=== PATIENT | female | born 1995 | race Caucasian/White ===

== ENCOUNTER 2021-12-28 18:46 | Emergency (ER) | payer OTHER, SELFPAY ==
[2021-12-28 19:28] VITALS: BP 145/93; PULSE 110; RESP 18; TEMP 36.4; O2SAT 100
--- NOTE | 2021-12-28 21:11 | ED.GENADULT ---
HPI - General Adult General Chief complaint: Wound/Laceration Stated complaint: sore on leg Time Seen by Provider: 12/28/21 21:06 History of Present Illness HPI narrative: a 26-year-old female presenting to ED with a chief complaint of a sore on her right calf. Patient believes that she was stung by a bee on Sunday. After that the area became erythematous, indurated and painful. She has not noted any drainage. Denies systemic signs of illness such as fever chills nausea vomiting or diarrhea. Related Data Allergies Allergy/AdvReac Type Severity Reaction Status Date / Time Penicillins Allergy Unknown Unknown Verified 12/28/21 19:31 sulfamethoxazole Allergy Unknown Unknown Verified 12/28/21 19:31 trimethoprim Allergy Unknown Unknown Verified 12/28/21 19:31 Review of Systems Review of Systems: CONSTITUTIONAL: Denies night sweats. EYES: No eye pain ENT: Denies rhinorrhea CARDIOVASCULAR: Denies palpitations RESPIRATORY: Denies hemoptysis GASTROINTESTINAL: Denies hematemesis GENITOURINARY: Denies hematuria. SKIN: Denies rash MUSCULOSKELETAL: Denies myalgia. NEUROLOGIC: Denies weakness. PSYCHIATRIC: Denies delusions [facility] Social History Social History (Updated 12/28/21 @ 21:12 by Don Valdez MD) Social History: Patient denies any history of alcohol tobacco or drug use Exam Narrative: APPEARANCE: No apparent distress. Head atraumatic. EYES: PERRLA/EOMI, NOSE: Normal no drainage NECK: Supple, Trachea midline RESPIRATORY: CTAB, No increased work of breathing. CARDIOVASCULAR: S1S2 appreciated ABDOMINAL: Soft, nontender, nondistended, MUSCULOSKELETAl: No obvious deformities NEURO: Alert. Moving 4/4 extremities SKIN:: 8 x 7cm area of erythema and induration on her right calf. There is no areas of fluctuance indicating an abscess. PSYCHIATRIC: Normal affect Course Vital Signs Vital signs: Vital Signs Temperature 97.6 F 12/28/21 19:28 Pulse Rate 110 H 12/28/21 19:28 Respiratory Rate 18 12/28/21 19:28 Blood Pressure 145/93 H 12/28/21 19:28 Pulse Oximetry 100 12/28/21 19:28 Temperature 97.6 F 12/28/21 19:28 Pulse Rate 110 H 12/28/21 19:28 Respiratory Rate 18 12/28/21 19:28 Blood Pressure 145/93 H 12/28/21 19:28 Pulse Oximetry 100 12/28/21 19:28 Medical Decision Making MDM Narrative Medical decision making narrative: A 26-year-old female presenting with an area of erythema on her right calf. Differential cellulitis versus brown recluse spider bite. Patient will be treated with a course of antibiotics to see if that resolves her issue. If not she can follow up with a primary care physician to get referral to a surgeon. Vital Signs Vital Signs: Vital Signs Temperature 97.6 F 12/28/21 19:28 Pulse Rate 110 H 12/28/21 19:28 Respiratory Rate 18 12/28/21 19:28 Blood Pressure 145/93 H 12/28/21 19:28 Pulse Oximetry 100 12/28/21 19:28 Temperature 97.6 F 12/28/21 19:28 Pulse Rate 110 H 12/28/21 19:28 Respiratory Rate 18 12/28/21 19:28 Blood Pressure 145/93 H 12/28/21 19:28 Pulse Oximetry 100 12/28/21 19:28 Discharge Plan Discharge Clinical Impression: Cellulitis Patient Disposition: Home, Self-Care Condition: Stable Instructions: Antibiotic Form, Cellulitis (ED) Additional Instructions: Take a 7 day course of Keflex. Please return to the emergency department if you can not tolerate oral medications, or your condition is worsening in any way. Prescriptions: New cephalexin 500 mg capsule 500 mg PO QID Qty: 28 0RF Follow-up/Referrals: PHYSICIAN,EQUIPMENT OPERATOR [Primary Care Provider] - Time of Disposition: 21:16
[2021-12-28] MEDS: CEPHALEXIN 500 MG CAPSULE PO (21:28)
[2021-12-28 21:41] VITALS: BP 126/70; PULSE 74; RESP 16; TEMP 36.8; O2SAT 100
== END 2021-12-28 21:54 | disposition home or self-care (01) ==
LOC: ANHED 21:50
PROVIDERS: Emergency Provider Emergency Medicine
DX: L03.115 Cellulitis of right lower limb (principal)
CPT/HCPCS: 99283; A9270